=== PATIENT | male | born 1985 | race Two or more races ===

== ENCOUNTER 2020-12-27 15:38 | Emergency (ER) | payer OTHER ==
[~2020-12-27] VITALS: Ht 180.3 cm; Wt 92.6 kg
[2020-12-27] MEDS ORDERED: ONDANSETRON ODT 4 MG PO ONE (16:30)
[2020-12-27 16:37] LABS: BASOPHILS % (AUTO) 1 % (0-1); EOSINOPHILS % (AUTO) 2 % (1-7); LYMPHOCYTES % (AUTO) 14 % (22-44); MEAN CORPUSCULAR HEMOGLOBIN 26.6 pg (27.5-34.5); MEAN CORPUSCULAR HGB CONC 34.4 g/dL (33.2-36.2); MEAN PLATELET VOLUME 7.9 fL (7.4-10.4); MONOCYTES % (AUTO) 13 % (2-9); NEUTROPHILS % (AUTO) 70 % (42-75); PLATELET COUNT 155 x10^3/uL (130-400); RED BLOOD COUNT 6.33 x10^6/uL (4.38-5.82); RED CELL DISTRIBUTION WIDTH 13.8 % (9.4-14.8)
[2020-12-27 16:49] LABS: ALBUMIN 3.4 g/dL (3.4-5.0); ANION GAP 4 mmol/L (5-15); CALCIUM 8.3 mg/dL (8.5-10.1); CHLORIDE 106 mmol/L (98-107); CREATININE 1.32 mg/dL (0.7-1.3)
--- NOTE | 2020-12-27 19:24 | NUR ---
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
[2020-12-27] MEDS ORDERED: ONDANSETRON ODT 4 MG ONE (19:39)
--- NOTE | 2020-12-27 19:56 | NUR ---
PT STATES UNABLE TO PROVIDE STOOL SAMPLE AT THIS TIME, STATES LAST BM WAS SATURDAY
[2020-12-27] MEDS ORDERED: SODIUM CHLORIDE 0.9% 1,000ML IVBOLUS ONE (20:30)
[2020-12-27 21:16] VITALS: BP 122/85
== END 2020-12-27 21:51 | disposition home or self-care (01) ==
LOC: ED 21:00
DX: E86.0 Dehydration (principal); R11.2 Nausea with vomiting, unspecified; R19.7 Diarrhea, unspecified
CPT/HCPCS: 36415; 80048; 82040; 85025; 96360; 99283; J7030; Q0162